=== PATIENT | male | born 1965 ===

== ENCOUNTER 2019-02-04 03:40 | Emergency (ER) | payer OTHER ==
[~2019-02-04] VITALS: Ht 190.5 cm; Wt 116.6 kg
--- NOTE | 2019-02-04 03:40 | NUR ---
TO BED 2 AMBULATORY C/O SOB X2 DAYS. WHEEZING HEARD BILATERALL ON AUSCULTATION. PT AAOX4 NO ACUTE DISTRESS NOTED, RESP EVEN AND UNLABORED. PLACE PT ON CARDIAC MONITORING, CONTINUOUS POX. O2@2L/NC. PENDING ER MD DELA CRUZ.
--- NOTE | 2019-02-04 03:45 | NUR ---
ER MD AT BEDSIDE TO EVAL PT WITH ORDERS RECEIVED.
--- NOTE | 2019-02-04 03:47 | NUR ---
RT PAGED FOR TOMMY SMITH.
[2019-02-04] MEDS ORDERED: ALBUTEROL FS 2.5 MG/0.5 ML VIAL.NEB ONE ×2 (04:00→04:28)
[2019-02-04] MEDS ORDERED: ALBUTEROL FS 2.5 MG/0.5 ML VIAL.NEB NEB ONE ×2 (04:00→04:30)
--- NOTE | 2019-02-04 04:03 | NUR ---
RT AT BEDSIDE TO GIVE HHN TX.
--- NOTE | 2019-02-04 04:20 | NUR ---
REASSESSED AFTER BREATHING TX BUT CONTINUES TO BE WHEEZING (BILAT.) UPON LUNG AUSCULTATION. MD MADE AWARE. AWAITING FURTHER ORDERS.
[2019-02-04] MEDS ORDERED: DEXAMETHASONE SOD PHOSPHATE 10 MG/ML VIAL ONE (04:28)
[2019-02-04] MEDS ORDERED: DEXAMETHASONE SOD PHOSPHATE 4 MG/ML VIAL IM ONE (04:30)
--- NOTE | 2019-02-04 04:30 | NUR ---
CXR TAKEN AT BEDSIDE.
--- NOTE | 2019-02-04 05:10 | NUR ---
Patient discharged to home in stable condition. Written and verbal after care instructions given. Patient verbalizes understanding of instruction. ambulatory with a steady gait noted. pt aaox4 no acute distress noted, resp even and unlabored.
[2019-02-04 05:12] VITALS: BP 127/82
== END 2019-02-04 05:12 | disposition home or self-care (01) ==
LOC: ER 03:44
DX: J98.01 Acute bronchospasm (principal); I10 Essential (primary) hypertension
CPT/HCPCS: 71045; 94640 ×2; 96372; 99284; J1100

== ENCOUNTER 2020-04-07 18:19 | Emergency (ER) | payer OTHER ==
[~2020-04-07] VITALS: Ht 180.3 cm; Wt 102.5 kg
--- NOTE | 2020-04-07 18:19 | NUR ---
PT BIBRA 78 C/O METH AND CRACK USED. PT IS AAOX3, NOT IN RESPIRATORY DISTRESS, NOTED RESTLESSNESS, HOOKED TO DATA INTEGRITY ANALYST, KEPT RESTED AND COMFORTABLE. WILL CONTINUE TO MONITOR.
--- NOTE | 2020-04-07 18:20 | NUR ---
IV LINE ESTABLISHED.
--- NOTE | 2020-04-07 18:22 | NUR ---
PT SEEN AND EXAMINED BY
[2020-04-07] MEDS ORDERED: LORAZEPAM INJ 2 MG/ML VIAL ONE (18:24)
[2020-04-07] MEDS ORDERED: LORAZEPAM INJ 2 MG/ML VIAL IV ONE (18:30)
[2020-04-07 18:52] LABS: BASOPHILS % (AUTO) 0.6 % (0.0-2.0); EOSINOPHILS % (AUTO) 3.4 % (0.0-6.0); HEMATOCRIT 41 % (39-51); HEMOGLOBIN 13.7 g/dL (13.5-17.5); LYMPHOCYTES # (AUTO) 2.4 /CMM (0.8-4.8); LYMPHOCYTES % (AUTO) 37.3 % (20.0-44.0); MEAN CORPUSCULAR HGB CONC 33 g/dl (31.0-36.0); MEAN CORPUSCULAR VOLUME 90 fL (80-96); MONOCYTES # (AUTO) 0.7 /CMM (0.1-1.30); MONOCYTES % (AUTO) 10.9 % (2.0-12.0); NEUTROPHILS % (AUTO) 47.8 % (43.0-81.0); PLATELET COUNT (AUTO) 283 /CMM (150-450); RED BLOOD CELL COUNT(AUTO) 4.56 MIL/uL (4.5-6.0); WHITE BLOOD COUNT (AUTO) 6.4 K/uL (4.3-11.0)
[2020-04-07 18:59] LABS: CARBON DIOXIDE 29 mmol/L (21-32); CHLORIDE 103 mmol/L (98-107); CREATININE 1.2 mg/dL (0.6-1.3); GLUCOSE 156 mg/dL (74-106); POTASSIUM 3.7 mmol/L (3.5-5.1); SODIUM SERUM 137 mmol/L (136-145); UREA NITROGEN, BLOOD 19 mg/dL (7-18)
[2020-04-07] MEDS ORDERED: ACETAMINOPHEN ES 500 MG TABLET PO ONE (19:00)
[2020-04-07 19:03] LABS: ALCOHOL, BLOOD < 3 mg/dL (0-0)
[2020-04-07 19:04] LABS: ACETAMINOPHEN < 2 ug/ml (10-30)
--- NOTE | 2020-04-07 19:04 | NUR ---
PATIENT IS SOMNOLENT. EASILY AROUSABLE THROUGH MECHANICAL STIMULI. PATIENT IS BREATHING EVENLY AND UNLABORED ON ROOM AIR. CONNECTED TO THE MONITOR.
[2020-04-07 19:06] LABS: ALANINE AMINOTRANSFERASE 19 U/L (12-78); ALBUMIN 3.1 g/dL (3.4-5.0); ALKALINE PHOSPHATASE 75 U/L (46-116); ASPARTATE AMINOTRANSFERASE 16 U/L (15-37); BILIRUBIN,DIRECT 0.1 mg/dL (0.0-0.2); BILIRUBIN,TOTAL 0.3 mg/dL (0.2-1.0); TOTAL PROTEIN, SERUM 7.4 g/dL (6.4-8.2)
[2020-04-07 19:44] LABS: CREATINE KINASE, TOTAL 297 U/L (39-308)
--- NOTE | 2020-04-07 22:55 | NUR ---
PATIENT IS SLEEPING. EASILY AROUSABLE THROUGH VERBAL STIMULI. CONNECTED TO MONITOR.
--- NOTE | 2020-04-08 01:21 | NUR ---
PATIENT FAILED THE TRIAL OF AMBULATION. NOTIFIED.
--- NOTE | 2020-04-08 01:56 | NUR ---
IV removed. Catheter intact and site benign. Pressure and 4x4 applied to site. No bleeding noted.
--- NOTE | 2020-04-08 05:54 | NUR ---
PATIENT REFUSED TO SIGN DISCHARGE PAPERWORK.
[2020-04-08 05:55] VITALS: BP 127/77
--- NOTE | 2020-04-08 05:57 | NUR ---
PATIENT GIVEN BUS PASS AND FOOD.
== END 2020-04-08 05:56 | disposition home or self-care (01) ==
LOC: ER 18:23
DX: F14.90 Cocaine use, unspecified, uncomplicated (principal); F16.10 Hallucinogen abuse, uncomplicated; R00.0 Tachycardia, unspecified; I10 Essential (primary) hypertension; J45.909 Unspecified asthma, uncomplicated
CPT/HCPCS: 36415; 71045; 80048; 80076; 80299; 80307; 80320; 82550; 84484; 85025; 93005 ×2; 96374; 99285; J2060; G0480